=== PATIENT | male | born 1950 | race Caucasian/White ===

== ENCOUNTER → 2020-04-12 | Outpatient (CLI) | payer MEDICARE ==
--- NOTE | 2020-04-12 11:19 | Diagnostic Imaging Report ---
X-ray chest 2 views Comparison: None History: Cough, dyspnea Findings: Central airways unremarkable. Heart size normal. Atherosclerotic aorta. No definite pleural effusion. No pneumothorax. Hypoaerated lungs. Elevation of the left hemidiaphragm. No definite focal lung disease or nodules. Visualized skeletal structures are unremarkable. Surgical kelsie right upper quadrant suggestive of prior cholecystectomy. Impression: No acute cardiopulmonary disease. Signed by: Shahram Pruett MD on 04/12/2020 11:16 AM
== END ==
LOC: RAD 10:39
PROVIDERS: ATTEND Family Medicine
DX: R06.00 Dyspnea, unspecified (principal)
CPT/HCPCS: 71046